=== PATIENT | female | born 1930 | race Caucasian/White ===

== ENCOUNTER 2022-02-05 19:22 | Inpatient (IN) | payer MEDICARE ==
[~2022-02-05] VITALS: Ht 157.5 cm; Wt 73.7 kg
[2022-02-05] MEDS ORDERED: SODIUM CHLORIDE 0.9% 1000ML 1,000 ML IV ONE ×2 (19:45→22:00)
[2022-02-05 20:03] LABS: EOSINOPHILS # (AUTO) 0.1 (0.0-0.4); EOSINOPHILS % 1.1 % (0.0-6.0); HEMATOCRIT 37.9 % (34.2-44.1); HEMOGLOBIN 12.6 g/dL (12.0-16.0); LYMPHOCYTES # (AUTO) 1.7 (1.0-3.2); LYMPHOCYTES % 22.8 % (18.0-39.1); MEAN CORPUSCULAR HGB CONC 33.2 g/dL (31-35); MEAN CORPUSCULAR VOLUME 96.2 fL (81-99); MONOCYTES # (AUTO) 0.7 (0.2-0.8); MONOCYTES % 9.5 % (4.4-11.3); NEUTROPHILS % 66.5 % (38.7-80.0); PLATELET COUNT 268 x10e3/uL (140-360); RED BLOOD COUNT 3.94 x10e6/uL (3.6-5.1); RED CELL DISTRIBUTION WIDTH 12.4 % (11.7-14.4)
[2022-02-05 20:19] LABS: ALBUMIN 3.3 g/dL (3.5-5.0); ALBUMIN/GLOBULIN RATIO 0.9 (0.8-2.0); CALCIUM 9.4 mg/dL (8.4-10.2); CREATININE, SERUM 0.89 mg/dL (0.57-1.11)
[2022-02-05 20:38] LABS: CLARITY,URINE SL CLOUDY (CLEAR); COLOR,URINE STRAW (YELLOW); KETONES,URINE NEGATIVE (NEGATIVE); LEUKOCYTE ESTERASE ,URINE TRACE (NEGATIVE); NITRITE,URINE NEGATIVE (NEGATIVE); PROTEIN,URINE DIPSTICK TRACE (NEGATIVE); URINE UROBILINOGEN 1 mg/dL (0.2 - 1)
[2022-02-05 20:53] LABS: BACTERIA,URINE FEW /HPF
[2022-02-05] MEDS ORDERED: ONDANSETRON HCL INJ 2MG/ML 2ML 2 MG/ML VIAL IV PRN (22:00)
[2022-02-05 23:35] VITALS: BP 154/72
[2022-02-05 23:45] VITALS: BP 154/72
[2022-02-06] VITALS (7 sets, daily range): BP systolic 107–165; BP diastolic 66–77
[2022-02-06 00:21] LABS: CREATINE KINASE MB 4.1 ng/mL (0-5.0)
[2022-02-06] MEDS ORDERED: CETIRIZINE HCL10 M1 PO (01:57)
[2022-02-06] MEDS ORDERED: OLANZAPINE5 MG PO (01:57)
[2022-02-06] MEDS ORDERED: ONDANSETRON ODT4 MG PO (01:57)
[2022-02-06] MEDS ORDERED: ASPIRIN EC81 MG PO (01:57)
[2022-02-06] MEDS ORDERED: ALENDRONATE SOD70 MG PO (01:57)
[2022-02-06] MEDS ORDERED: LEVOTHYROXINE50 MCG PO (01:57)
[2022-02-06] MEDS ORDERED: POTASSIUM CHLO10 ME1 PO (01:57)
[2022-02-06] MEDS ORDERED: LOPERAMIDE2 MG PO (01:57)
[2022-02-06] MEDS ORDERED: BENZONATATE100 MG PO (01:57)
[2022-02-06] MEDS ORDERED: GLUCOSAMINE1000 MG PO (01:57)
[2022-02-06] MEDS ORDERED: TRAZODONE HCL50 MG PO (01:57)
[2022-02-06] MEDS ORDERED: CITALOPRAM HBR20 MG PO (01:57)
[2022-02-06] MEDS ORDERED: PROTONIX20 MG PO (01:57)
[2022-02-06] MEDS ORDERED: ALBUTEROL0.63 MG/3 NEB (01:57)
[2022-02-06] MEDS ORDERED: LASIX20 MG PO (01:57)
[2022-02-06] MEDS ORDERED: LACTASE3000 UNIT PO (01:57)
[2022-02-06] MEDS ORDERED: DICLOFENAC GEL EXT (01:57)
[2022-02-06] MEDS ORDERED: SYMBICORT 80-10.2 GM INH (01:57)
[2022-02-06] MEDS ORDERED: CALCIUM CARBON500 MG PO (01:57)
[2022-02-06] MEDS ORDERED: DOCUSATE SODIU100 MG PO (01:57)
[2022-02-06] MEDS ORDERED: BISACODYL10 MG/30 M (01:57)
[2022-02-06] MEDS ORDERED: TYLENOL EXTRA500 MG PO (01:57)
[2022-02-06] MEDS ORDERED: VIT D (01:57)
[2022-02-06] MEDS ORDERED: CERTAVITE SR W1 EACH PO (01:57)
[2022-02-06] MEDS ORDERED: METOPROLOL TART25 MG PO (01:57)
[2022-02-06] MEDS: LEVOTHYROXINE SODIUM 25 MCG TABLET PO SCH (06:15)
[2022-02-06 06:23] LABS: EOSINOPHILS # (AUTO) 0.2 (0.0-0.4); EOSINOPHILS % 3.9 % (0.0-6.0); HEMATOCRIT 36.6 % (34.2-44.1); HEMOGLOBIN 11.4 g/dL (12.0-16.0); LYMPHOCYTES # (AUTO) 1.7 (1.0-3.2); LYMPHOCYTES % 32.9 % (18.0-39.1); MEAN CORPUSCULAR HEMOGLOBIN 31.8 pg (28-32); MEAN CORPUSCULAR HGB CONC 31.1 g/dL (31-35); MEAN CORPUSCULAR VOLUME 101.9 fL (81-99); MONOCYTES # (AUTO) 0.6 (0.2-0.8); MONOCYTES % 11.7 % (4.4-11.3); NEUTROPHILS # (AUTO) 2.6 (2.1-6.9); NEUTROPHILS % 51.3 % (38.7-80.0); PLATELET COUNT 231 x10e3/uL (140-360); RED BLOOD COUNT 3.59 x10e6/uL (3.6-5.1); RED CELL DISTRIBUTION WIDTH 12.9 % (11.7-14.4)
[2022-02-06 06:52] LABS: ALBUMIN 2.8 g/dL (3.5-5.0); ALBUMIN/GLOBULIN RATIO 0.9 (0.8-2.0); ANION GAP 11.8 mmol/L (8-16); CALCIUM 8.3 mg/dL (8.4-10.2); CREATININE, SERUM 0.75 mg/dL (0.57-1.11); POTASSIUM 3.8 mmol/L (3.5-5.1)
[2022-02-06 07:15] LABS: CREATINE KINASE MB 4.1 ng/mL (0-5.0)
[2022-02-06] MEDS: ASPIRIN 81 MG ENTERIC COATED PO SCH (09:06)
[2022-02-06 13:43] LABS: CREATINE KINASE MB 4.5 ng/mL (0-5.0)
[2022-02-07] VITALS (10 sets, daily range): BP systolic 124–158; BP diastolic 65–84
[2022-02-07] MEDS: LEVOTHYROXINE SODIUM 25 MCG TABLET PO SCH (05:54)
[2022-02-07] MEDS: ASPIRIN 81 MG ENTERIC COATED PO SCH (08:49)
[2022-02-08] VITALS (7 sets, daily range): BP systolic 123–159; BP diastolic 57–92
[2022-02-08] MEDS ORDERED: ALBUTEROL SULF 0.083% NEB SOLN 3 ML NEB NEB PRN (03:45)
[2022-02-08] MEDS: LEVOTHYROXINE SODIUM 25 MCG TABLET PO SCH (06:32)
[2022-02-08] MEDS: CITALOPRAM HYDROBROMIDE 20 MG TAB PO SCH ×2 (09:00→10:40)
[2022-02-08] MEDS: ASPIRIN 81 MG ENTERIC COATED PO SCH ×2 (09:00→10:40)
[2022-02-08] MEDS ORDERED: ACETAMINOPHEN 325 MG TAB PO PRN (13:45)
[2022-02-09] VITALS (7 sets, daily range): BP systolic 131–156; BP diastolic 61–96
[2022-02-09] MEDS: LEVOTHYROXINE SODIUM 25 MCG TABLET PO SCH (06:09)
[2022-02-09 06:59] LABS: ALBUMIN 2.9 g/dL (3.5-5.0); ALBUMIN/GLOBULIN RATIO 0.8 (0.8-2.0); ANION GAP 14.2 mmol/L (8-16); CALCIUM 8.8 mg/dL (8.4-10.2); CREATININE, SERUM 0.74 mg/dL (0.57-1.11); MAGNESIUM 2.1 MG/DL (1.3-2.1); POTASSIUM 4.2 mmol/L (3.5-5.1)
[2022-02-09 08:08] LABS: BASOPHILS % 0.2 % (0.0-1.0); EOSINOPHILS # (AUTO) 0.2 (0.0-0.4); EOSINOPHILS % 4.3 % (0.0-6.0); HEMATOCRIT 38.7 % (34.2-44.1); HEMOGLOBIN 12.7 g/dL (12.0-16.0); LYMPHOCYTES # (AUTO) 1.3 (1.0-3.2); LYMPHOCYTES % 23.9 % (18.0-39.1); MEAN CORPUSCULAR HEMOGLOBIN 31.4 pg (28-32); MEAN CORPUSCULAR HGB CONC 32.8 g/dL (31-35); MEAN CORPUSCULAR VOLUME 95.8 fL (81-99); MONOCYTES # (AUTO) 0.5 (0.2-0.8); MONOCYTES % 9.4 % (4.4-11.3); NEUTROPHILS # (AUTO) 3.4 (2.1-6.9); NEUTROPHILS % 61.8 % (38.7-80.0); PLATELET COUNT 262 x10e3/uL (140-360); RED BLOOD COUNT 4.04 x10e6/uL (3.6-5.1); RED CELL DISTRIBUTION WIDTH 12.6 % (11.7-14.4)
[2022-02-10] VITALS (7 sets, daily range): BP systolic 115–164; BP diastolic 59–93
[2022-02-10] MEDS: LEVOTHYROXINE SODIUM 25 MCG TABLET PO SCH (06:01)
[2022-02-10] MEDS: CITALOPRAM HYDROBROMIDE 20 MG TAB PO SCH (09:02)
[2022-02-10] MEDS: ASPIRIN 81 MG ENTERIC COATED PO SCH (09:02)
[2022-02-11] VITALS: BP 148/72
[2022-02-11 04:00] VITALS: BP 134/69
[2022-02-11] MEDS: LEVOTHYROXINE SODIUM 25 MCG TABLET PO SCH (05:45)
[2022-02-11 07:38] VITALS: BP 130/66
[2022-02-11] MEDS: CITALOPRAM HYDROBROMIDE 20 MG TAB PO SCH (09:46)
[2022-02-11] MEDS: ASPIRIN 81 MG ENTERIC COATED PO SCH (09:46)
[2022-02-11] MEDS ORDERED: SODIUM CHLORIDE 0.9% 1000ML 1,000 ML ONE (10:13)
[2022-02-11 11:34] VITALS: BP 125/73
[2022-02-11] MEDS ORDERED: ONDANSETRON HCL 4 MG ORAL DISINTEGRATING TAB PO PRN (13:45)
[2022-02-11 15:21] VITALS: BP 129/67
[2022-02-11 20:37] VITALS: BP 146/72
== END 2022-02-11 21:20 | DRG 689 ==
LOC: ER 19:31 → ERHOLD 22:05 → UNDOADMIN 22:05 → ER 22:27 → ERHOLD 23:13 → MED/SURG2 23:25
PROVIDERS: ADMIT Internal Medicine; ATTEND Internal Medicine
DX: N39.0 Urinary tract infection, site not specified (principal); G93.41 Metabolic encephalopathy; F41.9 Anxiety disorder, unspecified; E03.9 Hypothyroidism, unspecified; F03.90 Unspecified dementia, unspecified severity, without behavioral disturbance, psychotic disturbance, mood disturbance, and anxiety; J44.9 Chronic obstructive pulmonary disease, unspecified; Z88.0 Allergy status to penicillin; Z88.2 Allergy status to sulfonamides; Z88.8 Allergy status to other drugs, medicaments and biological substances; M81.0 Age-related osteoporosis without current pathological fracture; M16.0 Bilateral primary osteoarthritis of hip; Z96.643 Presence of artificial hip joint, bilateral; Z20.822 Contact with and (suspected) exposure to COVID-19
CPT/HCPCS: 36415; 70450; 71045; 80053; 81001; 82550; 82553; 83605; 83735; 84484; 85025; 87040; 87086; 93005; 94799; 97139; 99251; 99285; J0696; J7030